=== PATIENT | female | born 1960 | race Hispanic/Latino ===

== ENCOUNTER → 2017-11-20 | Outpatient (CLI) | payer BC ==
[~2017-11-20] MED LIST: ATEN50TA PO; ATOR20TA65 PO; GABA-531 PO; LOSA1TAB37 PO; SITA1TBM4 PO
== END | disposition home or self-care (01) ==
LOC: SHCH 10:23
PROVIDERS: ATTEND Internal Medicine Cardiovascular Disease
DX: I44.7 Left bundle-branch block, unspecified (principal)
CPT/HCPCS: 93306

== ENCOUNTER 2017-12-11 06:38 | Day surgery (SDC) | payer BC ==
[~2017-12-11] VITALS: Ht 154.9 cm; Wt 63.8 kg
[2017-12-11] MEDS ORDERED: SODIUM CHLORIDE 0.9% 1000ML 1,000 ML IV ONE ×2 (06:49→08:10)
[2017-12-11 06:53] VITALS: BP 141/75
[2017-12-11 06:56] VITALS: BP 141/75
[2017-12-11] MEDS ORDERED: PROPOFOL 10 MG/ML 20ML VIAL IV ONE (07:45)
== END 2017-12-11 08:44 | disposition home or self-care (01) ==
LOC: DAH 06:38 → ENDO 06:38
PROVIDERS: ATTEND Internal Medicine Gastroenterology
DX: Z12.11 Encounter for screening for malignant neoplasm of colon (principal); K21.9 Gastro-esophageal reflux disease without esophagitis; I10 Essential (primary) hypertension; E78.5 Hyperlipidemia, unspecified; J45.909 Unspecified asthma, uncomplicated; E11.9 Type 2 diabetes mellitus without complications; M19.90 Unspecified osteoarthritis, unspecified site; Z79.899 Other long term (current) drug therapy
CPT/HCPCS: 45378; 82948 ×2; A4606; J2704; J7030 ×2

== ENCOUNTER → 2020-02-20 | Outpatient (CLI) | payer BC | END | disposition home or self-care (01) | LOC: SHCH 10:06 | PROVIDERS: ATTEND Internal Medicine Cardiovascular Disease | DX: I10 Essential (primary) hypertension (principal) | CPT/HCPCS: 93306 ==

== ENCOUNTER → 2020-03-04 | Outpatient (CLI) | payer BC | END | disposition home or self-care (01) | LOC: SHCH 14:02 | PROVIDERS: ATTEND Internal Medicine Cardiovascular Disease | DX: I87.2 Venous insufficiency (chronic) (peripheral) (principal) | CPT/HCPCS: 93970 ==

== ENCOUNTER 2020-06-16 12:27 | Inpatient (IN) | payer BC ==
[~2020-06-16] VITALS: Ht 157.5 cm; Wt 71.6 kg
[2020-06-16] MEDS ORDERED: ACETAMINOPHEN EXTRA STRENGTH 500 MG TABLET ONE (12:52)
[2020-06-16 12:59] LABS: BASOPHILS % (AUTO) 0.3 % (0.0-5.0); HEMATOCRIT 35.4 % (36-48); MEAN CORPUSCULAR HEMOGLOBIN 29.4 pg (27.0-33.0); MEAN CORPUSCULAR HGB CONC 33.1 g/dL (32.0-36.0); MEAN CORPUSCULAR VOLUME 88.9 fL (79-99); MONOCYTES % (AUTO) 9.1 % (3.0-13.0); NEUTROPHILS % (AUTO) 68.3 % (40.0-77.0); PLATELET COUNT (AUTO) 130 K/uL (130-400); RED BLOOD CELL COUNT(AUTO) 3.98 MIL/uL (4.00-5.50); RED CELL DISTRIBUTION WIDTH 13.8 % (11.0-15.5); WHITE BLOOD COUNT (AUTO) 3.5 K/uL (4.8-10.8)
[2020-06-16 13:11] LABS: APPEARANCE,URINE CLEAR (CLEAR); BILIRUBIN,URINE NEGATIVE (NEGATIVE); COLOR,URINE YELLOW (YELLOW); GLUCOSE, URINE (UA) NEGATIVE (NEGATIVE); KETONES,URINE NEGATIVE (NEGATIVE); LEUKOCYTE ESTERASE ,URINE NEGATIVE (NEGATIVE); NITRATE,URINE NEGATIVE (NEGATIVE); OCCULT BLOOD,URINE NEGATIVE (NEGATIVE); PH,URINE 5.5 (5.0-8.0); PROTEIN,URINE 30 mg/dL (NEGATIVE); UROBILINOGEN,URINE 0.2 mg/dL (0.2-1.0)
[2020-06-16] MEDS ORDERED: CEFTRIAXONE SODIUM 1 GM ONE ×2 (13:11→19:58)
[2020-06-16] MEDS ORDERED: SODIUM CHLORIDE 0.9% 50 ML IV ONE (13:12)
[2020-06-16 13:15] LABS: BILIRUBIN,TOTAL 0.3 mg/dL (0.2-1.0); CREATININE 1.2 mg/dL (0.5-1.5); POTASSIUM 3.8 mmol/L (3.5-5.1)
[2020-06-16 13:16] LABS: ALBUMIN 3.4 g/dL (3.5-5.0); INR 0.94 (0.85-1.15); PARTIAL THROMBOPLASTIN TIME 32.2 SEC (26.3-35.5); PROTHROMBIN TIME 10.2 SEC (9.6-11.6); TOTAL PROTEIN, SERUM 7.6 g/dL (6.0-8.3)
[2020-06-16] MEDS ORDERED: DEXTROSE 50%-WATER 50 ML DISP.SYRIN IV ONE (13:23)
[2020-06-16 13:30] LABS: BACTERIA,URINE Rare /HPF (None Seen); RBC,URINE 0-1 /HPF (0-1); SQUAMOUS EPITHELIAL CELL,UR Rare /HPF (0-2); WBC,URINE 0-1 /HPF (0-1)
[2020-06-16] MEDS ORDERED: ALBUTEROL INHALER 90MCG/INH IH ONE (14:05)
[2020-06-16] MEDS ORDERED: DEXAMETHASONE SOD PHOSPHATE 10MG/ML 1ML VIAL ONE (14:05)
[2020-06-16] MEDS ORDERED: DOXYCYCLINE 100MG+NS 250ML 250 ML IV ONE ×2 (14:05→19:58)
[2020-06-16 14:22] LABS: ABG BASE EXCESS 0.9 mmol/L (-2.0-3.0); ABG HCO3 26.2 mmol/L (21.0-28.0); ABG PCO2 44 mmHg (32-45)
[2020-06-16] MEDS: SODIUM CHLORIDE 0.9% 1000ML 1,000 ML IV SCH (14:30)
[2020-06-16] MEDS ORDERED: DEXAMETHASONE SOD PHOSPHATE 4 MG/ML 1ML VIAL IVP SCH (14:30)
[2020-06-16] MEDS ORDERED: ERGOCALCIFEROL (VITAMIN D2) 50,000 UNIT CAPSULE PO ONE (14:30)
[2020-06-16] MEDS: CEFTRIAXONE SODIUM 1 GM IVP SCH (14:30)
[2020-06-16] MEDS ORDERED: DOXYCYCLINE 100MG+NS 250ML IV SCH (14:30)
[2020-06-16] MEDS ORDERED: ASCORBIC ACID 500 MG TAB ONE (14:39)
[2020-06-16] MEDS ORDERED: ACETYLCYSTEINE 600 MG CAPSULE ONE ×2 (14:39→19:58)
[2020-06-16] MEDS ORDERED: SODIUM CHLORIDE 0.9% 1000ML 1,000 ML IV ONE (14:39)
[2020-06-16] MEDS ORDERED: ZINC SULFATE 220 CAPSULE ONE (14:39)
[2020-06-16] MEDS ORDERED: ERGOCALCIFEROL (VITAMIN D2) 50,000 UNIT CAPSULE ONE ×2 (14:39→14:49)
[2020-06-16 15:00] LABS: CRP QUANTITATIVE 28.5 mg/L (0.00-9.0)
[2020-06-16] MEDS ORDERED: PHARMACY COMMUNICATION MISC SCH (15:45)
[2020-06-16] MEDS ORDERED: ONDANSETRON HCL 4 MG/2 ML VIAL ONE (20:02)
[2020-06-16] MEDS ORDERED: ACETAMINOPHEN 325 MG TAB ONE (20:02)
[2020-06-16] MEDS: DOXYCYCLINE 100MG+NS 250ML 250 ML IV SCH (21:00)
[2020-06-16] MEDS: ACETYLCYSTEINE 600 MG CAPSULE PO SCH (21:00)
[2020-06-17] MEDS: CEFTRIAXONE SODIUM 1 GM IVP SCH ×2 (02:30→14:30)
[2020-06-17 06:12] LABS: BASOPHILS % (AUTO) 0.2 % (0.0-5.0); HEMATOCRIT 35.7 % (36-48); LYMPHOCYTES % (AUTO) 17.6 % (21.0-51.0); MEAN CORPUSCULAR HEMOGLOBIN 29.4 pg (27.0-33.0); MEAN CORPUSCULAR HGB CONC 32.5 g/dL (32.0-36.0); MEAN CORPUSCULAR VOLUME 90.4 fL (79-99); NEUTROPHILS % (AUTO) 75.2 % (40.0-77.0); PLATELET COUNT (AUTO) 123 K/uL (130-400); RED BLOOD CELL COUNT(AUTO) 3.95 MIL/uL (4.00-5.50); RED CELL DISTRIBUTION WIDTH 13.8 % (11.0-15.5); WHITE BLOOD COUNT (AUTO) 4.1 K/uL (4.8-10.8)
[2020-06-17 06:26] LABS: ALANINE AMINOTRANSFERASE 38 U/L (12-78); ASPARTATE AMINOTRANSFERASE 48 U/L (10-37); BILIRUBIN,TOTAL 0.3 mg/dL (0.2-1.0); CARBON DIOXIDE 26 mmol/L (21-32); CHLORIDE 100 mmol/L (101-111); LACTATE DEHYDROGENASE 7 U/L (81-234); POTASSIUM 4.7 mmol/L (3.5-5.1); SODIUM SERUM 136 mmol/L (136-145); TOTAL PROTEIN, SERUM 7.4 g/dL (6.0-8.3)
[2020-06-17 06:33] LABS: ALBUMIN 3.2 g/dL (3.5-5.0); CREATININE 0.9 mg/dL (0.5-1.5); GLOMERULAR FILTR. RATE CALC 67 mL/min (>60); GLUCOSE,RANDOM 196 mg/dL (70-105); UREA NITROGEN, BLOOD 18 mg/dL (7-18)
[2020-06-17] MEDS ORDERED: CEFTRIAXONE SODIUM 1 GM ONE ×2 (07:51→19:50)
[2020-06-17] MEDS ORDERED: DOXYCYCLINE 100MG+NS 250ML 250 ML IV ONE ×2 (07:51→19:50)
[2020-06-17] MEDS ORDERED: SODIUM CHLORIDE 0.9% 100 ML IV ONE (07:52)
[2020-06-17] MEDS ORDERED: PHARMACY COMMUNICATION MISC SCH (08:30)
[2020-06-17] MEDS ORDERED: ACETYLCYSTEINE 600 MG CAPSULE ONE (08:49)
[2020-06-17] MEDS ORDERED: ASCORBIC ACID 500 MG TAB ONE (08:49)
[2020-06-17] MEDS ORDERED: ZINC SULFATE 220 CAPSULE ONE (08:50)
[2020-06-17] MEDS ORDERED: ENOXAPARIN SODIUM 40 MG/0.4 ML SYRINGE SQ ONE (08:50)
[2020-06-17] MEDS ORDERED: SODIUM CHLORIDE 0.9% 1000ML 1,000 ML IV ONE (08:51)
[2020-06-17] MEDS: ASCORBIC ACID 500 MG TAB PO SCH (09:00)
[2020-06-17] MEDS: DOXYCYCLINE 100MG+NS 250ML 250 ML IV SCH ×2 (09:00→21:00)
[2020-06-17] MEDS: ZINC SULFATE 220 CAPSULE PO SCH (09:00)
[2020-06-17] MEDS: ACETYLCYSTEINE 600 MG CAPSULE PO SCH ×2 (09:00→21:00)
[2020-06-17] MEDS ORDERED: ENOXAPARIN SODIUM 40 MG/0.4 ML SYRINGE SQ SCH (09:00)
[2020-06-17] MEDS: SODIUM CHLORIDE 0.9% 1000ML 1,000 ML IV SCH (10:30)
[2020-06-17] MEDS ORDERED: ONDANSETRON HCL 4 MG/2 ML VIAL ONE (13:01)
[2020-06-17] MEDS ORDERED: DICYCLOMINE HCL 10 MG/ML 2ML AMP IM ONE (13:01)
[2020-06-17] MEDS ORDERED: ACETAMINOPHEN 325 MG TAB ONE ×2 (13:18→19:51)
[2020-06-17] MEDS ORDERED: DIPHENHYDRAMINE HCL 25 MG CAPSULE ONE (13:18)
--- NOTE | 2020-06-17 14:42 | NUR ---
IA NOT DONE. Phone numbers on file all ring with a busy signal.
[2020-06-17] MEDS ORDERED: DEXAMETHASONE SOD PHOSPHATE 10MG/ML 1ML VIAL ONE (15:00)
[2020-06-17] MEDS ORDERED: INSULIN HUMULIN R 100 UNIT/ML 3ML ONE ×2 (15:01→21:47)
[2020-06-17] MEDS ORDERED: ONDANSETRON HCL 4 MG/2 ML VIAL IVP PRN (17:45)
[2020-06-17] MEDS ORDERED: GUAIFENESIN-DM 200/20 MG 10 ML PO PRN (17:45)
[2020-06-17] MEDS ORDERED: DiphenhydrAMINE HCL 50 MG/ML VIAL IV PRN (17:45)
[2020-06-17] MEDS ORDERED: FAMOTIDINE 20MG TAB 20 MG TAB ONE (19:50)
[2020-06-17] MEDS ORDERED: SODIUM CHLORIDE 0.9% 50 ML IV ONE (19:51)
[2020-06-17] MEDS ORDERED: GUAIFENESIN-DM 200/20 MG 10 ML ONE (20:03)
[2020-06-17] MEDS: INSULIN GLARGINE 100 UNITS/ML 10 ML VIAL SQ SCH (23:55)
[2020-06-18] MEDS ORDERED: GUAIFENESIN-DM 200/20 MG 10 ML ONE (01:57)
[2020-06-18] MEDS ORDERED: ACETYLCYSTEINE 600 MG CAPSULE ONE ×3 (01:57→20:47)
[2020-06-18] MEDS ORDERED: ACETAMINOPHEN 325 MG TAB ONE ×2 (01:57→07:50)
[2020-06-18] MEDS: CEFTRIAXONE SODIUM 1 GM IVP SCH ×2 (02:30→14:30)
[2020-06-18 04:35] LABS: HEMATOCRIT 35.3 % (36-48); LYMPHOCYTES % (AUTO) 13.1 % (21.0-51.0); MEAN CORPUSCULAR HEMOGLOBIN 29.1 pg (27.0-33.0); MEAN CORPUSCULAR HGB CONC 32.6 g/dL (32.0-36.0); MEAN CORPUSCULAR VOLUME 89.4 fL (79-99); NEUTROPHILS % (AUTO) 83.7 % (40.0-77.0); PLATELET COUNT (AUTO) 131 K/uL (130-400); RED BLOOD CELL COUNT(AUTO) 3.95 MIL/uL (4.00-5.50); RED CELL DISTRIBUTION WIDTH 13.5 % (11.0-15.5); WHITE BLOOD COUNT (AUTO) 4.6 K/uL (4.8-10.8)
[2020-06-18 04:48] LABS: ALANINE AMINOTRANSFERASE 34 U/L (12-78); ALBUMIN 3.4 g/dL (3.5-5.0); ASPARTATE AMINOTRANSFERASE 51 U/L (10-37); BILIRUBIN,TOTAL 0.3 mg/dL (0.2-1.0); CARBON DIOXIDE 26 mmol/L (21-32); CHLORIDE 98 mmol/L (101-111); CREATININE 0.8 mg/dL (0.5-1.5); GLOMERULAR FILTR. RATE CALC 77 mL/min (>60); GLUCOSE,RANDOM 283 mg/dL (70-105); LACTATE DEHYDROGENASE 332 U/L (81-234); POTASSIUM 4.8 mmol/L (3.5-5.1); SODIUM SERUM 135 mmol/L (136-145); TOTAL PROTEIN, SERUM 7.7 g/dL (6.0-8.3); UREA NITROGEN, BLOOD 14 mg/dL (7-18)
[2020-06-18] MEDS: SODIUM CHLORIDE 0.9% 1000ML 1,000 ML IV SCH (06:30)
[2020-06-18] MEDS: INSULIN HUMULIN R 100 UNIT/ML 3ML SQ SCH ×4 (07:30→21:00)
[2020-06-18] MEDS ORDERED: CEFTRIAXONE SODIUM 1 GM ONE ×2 (07:50→20:48)
[2020-06-18] MEDS ORDERED: SODIUM CHLORIDE 0.9% 50 ML IV ONE (07:51)
[2020-06-18] MEDS: INSULIN GLARGINE 100 UNITS/ML 10 ML VIAL SQ SCH ×2 (08:00→21:00)
[2020-06-18] MEDS: ATORVASTATIN CALCIUM 20 MG TABLET PO SCH (09:00)
[2020-06-18] MEDS: ASCORBIC ACID 500 MG TAB PO SCH (09:00)
[2020-06-18] MEDS: DOXYCYCLINE 100MG+NS 250ML 250 ML IV SCH ×2 (09:00→21:00)
[2020-06-18] MEDS: ACETYLCYSTEINE 600 MG CAPSULE PO SCH ×2 (09:00→21:00)
[2020-06-18] MEDS: DEXAMETHASONE SOD PHOSPHATE 4 MG/ML 1ML VIAL IVP SCH (09:00)
[2020-06-18] MEDS: FAMOTIDINE 20MG TAB 20 MG TAB PO SCH (09:00)
[2020-06-18] MEDS: HYDROCHLOROTHIAZIDE 25 MG TABLET PO SCH (09:00)
[2020-06-18] MEDS: LOSARTAN 50 MG TABLET PO SCH (09:00)
[2020-06-18] MEDS: ZINC SULFATE 220 CAPSULE PO SCH (09:00)
[2020-06-18] MEDS ORDERED: ASCORBIC ACID 500 MG TAB ONE (09:38)
[2020-06-18] MEDS ORDERED: FAMOTIDINE 20MG TAB 20 MG TAB ONE ×2 (09:38→20:47)
[2020-06-18] MEDS ORDERED: ZINC SULFATE 220 CAPSULE ONE (09:39)
[2020-06-18] MEDS ORDERED: DOXYCYCLINE 100MG+NS 250ML 250 ML IV ONE ×2 (09:39→20:48)
[2020-06-18] MEDS ORDERED: DEXAMETHASONE SOD PHOSPHATE 4 MG/ML 1ML VIAL ONE (09:39)
[2020-06-18] MEDS ORDERED: ENOXAPARIN SODIUM 40 MG/0.4 ML SYRINGE SQ ONE (10:35)
[2020-06-18] MEDS ORDERED: ATORVASTATIN CALCIUM 20 MG TABLET ONE (10:35)
[2020-06-18] MEDS ORDERED: HYDROCHLOROTHIAZIDE 25 MG TABLET ONE (10:36)
[2020-06-18] MEDS ORDERED: LOSARTAN 50 MG TABLET ONE (10:36)
--- NOTE | 2020-06-18 12:19 | NUR ---
IA NOT DONE. Phone numbers on file all ring with a busy signal.
[2020-06-18] MEDS ORDERED: INSULIN HUMULIN R 100 UNIT/ML 3ML ONE ×2 (12:34→18:06)
[2020-06-18] MEDS ORDERED: ENOXAPARIN SODIUM 80 MG/0.8 ML SQ ONE (20:47)
[2020-06-18] MEDS: ENOXAPARIN SODIUM 80 MG/0.8 ML SQ SCH (21:00)
[2020-06-18 23:35] VITALS: BP 148/86
[2020-06-19] MEDS: SODIUM CHLORIDE 0.9% 1000ML 1,000 ML IV SCH ×2 (01:34→20:24)
[2020-06-19 04:26] LABS: HEMATOCRIT 31.4 % (36-48); LYMPHOCYTES % (AUTO) 9.9 % (21.0-51.0); MEAN CORPUSCULAR HEMOGLOBIN 28.9 pg (27.0-33.0); MEAN CORPUSCULAR HGB CONC 33.1 g/dL (32.0-36.0); MEAN CORPUSCULAR VOLUME 87.2 fL (79-99); MONOCYTES % (AUTO) 5.3 % (3.0-13.0); NEUTROPHILS % (AUTO) 82.4 % (40.0-77.0); PLATELET COUNT (AUTO) 161 K/uL (130-400); RED CELL DISTRIBUTION WIDTH 13.3 % (11.0-15.5); WHITE BLOOD COUNT (AUTO) 7.9 K/uL (4.8-10.8)
[2020-06-19 04:29] VITALS: BP 142/80
[2020-06-19 04:41] LABS: ALANINE AMINOTRANSFERASE 31 U/L (12-78); ALBUMIN 2.8 g/dL (3.5-5.0); ASPARTATE AMINOTRANSFERASE 34 U/L (10-37); BILIRUBIN,TOTAL 0.4 mg/dL (0.2-1.0); CARBON DIOXIDE 24 mmol/L (21-32); CHLORIDE 96 mmol/L (101-111); CREATININE 0.9 mg/dL (0.5-1.5); GLOMERULAR FILTR. RATE CALC 67 mL/min (>60); GLUCOSE,RANDOM 259 mg/dL (70-105); LACTATE DEHYDROGENASE 292 U/L (81-234); POTASSIUM 3.9 mmol/L (3.5-5.1); SODIUM SERUM 131 mmol/L (136-145); UREA NITROGEN, BLOOD 15 mg/dL (7-18)
[2020-06-19] MEDS: INSULIN HUMULIN R 100 UNIT/ML 3ML SQ SCH ×4 (05:31→22:12)
[2020-06-19 08:00] VITALS: BP 143/81
[2020-06-19] MEDS: ASCORBIC ACID 500 MG TAB PO SCH (08:48)
[2020-06-19] MEDS: FAMOTIDINE 20MG TAB 20 MG TAB PO SCH (08:48)
[2020-06-19] MEDS: ACETYLCYSTEINE 600 MG CAPSULE PO SCH ×2 (08:48→20:24)
[2020-06-19] MEDS: ZINC SULFATE 220 CAPSULE PO SCH (08:48)
[2020-06-19] MEDS: DEXAMETHASONE SOD PHOSPHATE 4 MG/ML 1ML VIAL IVP SCH (08:49)
[2020-06-19] MEDS: ATORVASTATIN CALCIUM 20 MG TABLET PO SCH (08:49)
[2020-06-19] MEDS: LOSARTAN 50 MG TABLET PO SCH (08:49)
[2020-06-19] MEDS: HYDROCHLOROTHIAZIDE 25 MG TABLET PO SCH (08:49)
[2020-06-19] MEDS: INSULIN GLARGINE 100 UNITS/ML 10 ML VIAL SQ SCH ×2 (08:51→22:12)
[2020-06-19] MEDS: DOXYCYCLINE 100MG+NS 250ML 250 ML IV SCH ×2 (08:51→20:24)
[2020-06-19] MEDS: CEFTRIAXONE SODIUM 1 GM IVP SCH ×2 (08:51→20:24)
[2020-06-19] MEDS: ENOXAPARIN SODIUM 80 MG/0.8 ML SQ SCH ×2 (09:14→20:24)
[2020-06-19] MEDS: ACETAMINOPHEN 325 MG TAB PO PRN (10:08)
[2020-06-19 12:00] VITALS: BP 145/75
[2020-06-19 16:00] VITALS: BP 138/86
[2020-06-19 19:00] VITALS: BP 145/78
[2020-06-19 23:00] VITALS: BP 143/80
[2020-06-20 03:00] VITALS: BP 157/78
[2020-06-20] MEDS: INSULIN HUMULIN R 100 UNIT/ML 3ML SQ SCH ×4 (06:02→20:42)
[2020-06-20 06:10] LABS: HEMATOCRIT 34.9 % (36-48); LYMPHOCYTES % (AUTO) 9.4 % (21.0-51.0); MEAN CORPUSCULAR HEMOGLOBIN 28.9 pg (27.0-33.0); MEAN CORPUSCULAR HGB CONC 33.5 g/dL (32.0-36.0); MEAN CORPUSCULAR VOLUME 86.2 fL (79-99); MONOCYTES % (AUTO) 5.9 % (3.0-13.0); NEUTROPHILS % (AUTO) 84.2 % (40.0-77.0); PLATELET COUNT (AUTO) 233 K/uL (130-400); RED BLOOD CELL COUNT(AUTO) 4.05 MIL/uL (4.00-5.50); RED CELL DISTRIBUTION WIDTH 13.1 % (11.0-15.5); WHITE BLOOD COUNT (AUTO) 8.8 K/uL (4.8-10.8)
[2020-06-20 06:21] LABS: ALBUMIN 2.9 g/dL (3.5-5.0); BILIRUBIN,TOTAL 0.5 mg/dL (0.2-1.0); CREATININE 0.9 mg/dL (0.5-1.5); POTASSIUM 3.2 mmol/L (3.5-5.1); TOTAL PROTEIN, SERUM 7.8 g/dL (6.0-8.3)
[2020-06-20] MEDS ORDERED: LIDOCAINE HCL-MPF 1% 2ML VIAL IV PRN (06:30)
[2020-06-20] MEDS ORDERED: POTASSIUM CHLORIDE 10% ELIXIR 20 MEQ/15 ML UDCUP PO PRN (06:30)
[2020-06-20] MEDS ORDERED: POTASSIUM CHLORIDE 20MEQ/100ML 100 ML IV PRN (06:30)
[2020-06-20 08:00] VITALS: BP 141/79
[2020-06-20] MEDS: ZINC SULFATE 220 CAPSULE PO SCH (08:20)
[2020-06-20] MEDS: FAMOTIDINE 20MG TAB 20 MG TAB PO SCH (08:20)
[2020-06-20] MEDS: ATORVASTATIN CALCIUM 20 MG TABLET PO SCH (08:20)
[2020-06-20] MEDS: DEXAMETHASONE SOD PHOSPHATE 4 MG/ML 1ML VIAL IVP SCH (08:20)
[2020-06-20] MEDS: LOSARTAN 50 MG TABLET PO SCH (08:20)
[2020-06-20] MEDS: ACETYLCYSTEINE 600 MG CAPSULE PO SCH ×2 (08:20→19:49)
[2020-06-20] MEDS: HYDROCHLOROTHIAZIDE 25 MG TABLET PO SCH (08:21)
[2020-06-20] MEDS: ENOXAPARIN SODIUM 80 MG/0.8 ML SQ SCH ×2 (08:21→19:49)
[2020-06-20] MEDS: ASCORBIC ACID 500 MG TAB PO SCH (08:21)
[2020-06-20] MEDS: CEFTRIAXONE SODIUM 1 GM IVP SCH (08:21)
[2020-06-20] MEDS: INSULIN GLARGINE 100 UNITS/ML 10 ML VIAL SQ SCH ×2 (08:23→20:43)
[2020-06-20] MEDS: DOXYCYCLINE 100MG+NS 250ML 250 ML IV SCH ×2 (08:35→19:49)
[2020-06-20] MEDS: ACETAMINOPHEN 325 MG TAB PO PRN ×2 (08:35→20:39)
[2020-06-20 12:30] VITALS: BP 147/79
[2020-06-20] MEDS: POTASSIUM CHLORIDE 20 MEQ ERTAB PO PRN ×3 (15:27→18:35)
[2020-06-20 16:30] VITALS: BP 146/88
[2020-06-20] MEDS: SODIUM CHLORIDE 0.9% 1000ML 1,000 ML IV SCH (17:54)
[2020-06-20 19:30] VITALS: BP 146/81
[2020-06-20 23:30] VITALS: BP 134/70
[2020-06-21 04:00] VITALS: BP 148/58
[2020-06-21 04:48] LABS: BASOPHILS % (AUTO) 0.1 % (0.0-5.0); HEMATOCRIT 36.7 % (36-48); LYMPHOCYTES % (AUTO) 13.4 % (21.0-51.0); MEAN CORPUSCULAR HEMOGLOBIN 29.1 pg (27.0-33.0); MEAN CORPUSCULAR HGB CONC 33.5 g/dL (32.0-36.0); MEAN CORPUSCULAR VOLUME 86.8 fL (79-99); MONOCYTES % (AUTO) 6.2 % (3.0-13.0); NEUTROPHILS % (AUTO) 79.5 % (40.0-77.0); PLATELET COUNT (AUTO) 267 K/uL (130-400); RED BLOOD CELL COUNT(AUTO) 4.23 MIL/uL (4.00-5.50); RED CELL DISTRIBUTION WIDTH 13.2 % (11.0-15.5); WHITE BLOOD COUNT (AUTO) 9.8 K/uL (4.8-10.8)
[2020-06-21 05:09] LABS: ALBUMIN 2.9 g/dL (3.5-5.0); BILIRUBIN,TOTAL 0.5 mg/dL (0.2-1.0); HEMOGLOBIN A1C 7.3 % (4.0-6.0); POTASSIUM 3.8 mmol/L (3.5-5.1)
[2020-06-21] MEDS: INSULIN HUMULIN R 100 UNIT/ML 3ML SQ SCH ×5 (06:08→16:30)
[2020-06-21 08:00] VITALS: BP 150/90
[2020-06-21] MEDS: ACETYLCYSTEINE 600 MG CAPSULE PO SCH (08:27)
[2020-06-21] MEDS: ZINC SULFATE 220 CAPSULE PO SCH (08:27)
[2020-06-21] MEDS: ENOXAPARIN SODIUM 80 MG/0.8 ML SQ SCH (08:27)
[2020-06-21] MEDS: FAMOTIDINE 20MG TAB 20 MG TAB PO SCH (08:27)
[2020-06-21] MEDS: ASCORBIC ACID 500 MG TAB PO SCH (08:27)
[2020-06-21] MEDS: LOSARTAN 50 MG TABLET PO SCH (08:29)
[2020-06-21] MEDS: HYDROCHLOROTHIAZIDE 25 MG TABLET PO SCH (08:30)
[2020-06-21] MEDS: ATORVASTATIN CALCIUM 20 MG TABLET PO SCH (08:30)
[2020-06-21] MEDS: DEXAMETHASONE SOD PHOSPHATE 4 MG/ML 1ML VIAL IVP SCH (09:00)
[2020-06-21] MEDS: DOXYCYCLINE 100MG+NS 250ML 250 ML IV SCH (09:10)
[2020-06-21 12:00] VITALS: BP 138/91
[2020-06-21 16:00] VITALS: BP 137/58
[2020-06-21] MEDS ORDERED: DEXA6TAB PO (16:10)
[2020-06-21] MEDS ORDERED: APIX2.5T PO (16:10)
[2020-06-21] MEDS ORDERED: ZINC220C6 PO (16:10)
[2020-06-21] MEDS ORDERED: ASCO500T20 PO (16:10)
[2020-06-21] MEDS ORDERED: INSULIN GLARGINE 100 UNITS/ML 10 ML VIAL SQ SCH (21:00)
== END 2020-06-21 17:25 | disposition home or self-care (01) | DRG 177 ==
LOC: EDH 12:27 → EDHIP 14:08 → 2BH 06-18 23:23
PROVIDERS: ADMIT Hospitalist; ATTEND Hospitalist
PROC: XW13325 Transfusion of Convalescent Plasma (Nonautologous) into Peripheral Vein, Percutaneous Approach, New Technology Group 5 (ICD-10-PCS; principal; 2020-06-17)
DX: U07.1 COVID-19 (principal); J96.01 Acute respiratory failure with hypoxia; J12.89 Other viral pneumonia; N17.9 Acute kidney failure, unspecified; M62.82 Rhabdomyolysis; E87.1 Hypo-osmolality and hyponatremia; E11.649 Type 2 diabetes mellitus with hypoglycemia without coma; D64.9 Anemia, unspecified; E78.5 Hyperlipidemia, unspecified; E87.8 Other disorders of electrolyte and fluid balance, not elsewhere classified; I10 Essential (primary) hypertension; I44.7 Left bundle-branch block, unspecified; Z80.3 Family history of malignant neoplasm of breast; Z82.49 Family history of ischemic heart disease and other diseases of the circulatory system
CPT/HCPCS: 36415; 36600; 71045; 80053; 81001; 82550; 82728; 82803; 82948; 83036; 83605; 83615; 84145; 84484; 85025; 85378; 85610; 85730; 86140; 86850; 86900; 86901; 86927; 87040; 87426; 87804; 93005; 94760; G0378; J0500; J0696; J1100; J1650; J1815; J2405; J3490; J7030; J7070; Q0163